=== PATIENT | female | born 1955 | race Caucasian/White ===

== ENCOUNTER 2020-10-16 16:32 | Inpatient (IN) | payer MEDICARE, OTHER ==
[~2020-10-16] VITALS: Ht 157.5 cm; Wt 48.5 kg
[2020-10-16 17:20] VITALS: BP 112/71
[2020-10-16] MEDS ORDERED: ACETAMINOPHEN 325 MG TABLET PO PRN (20:30)
[2020-10-16] MEDS ORDERED: SENNA 187 MG TABLET PO SCH (21:00)
[2020-10-16] MEDS: MELATONIN 3 MG TABLET PO PRN (21:38)
[2020-10-16] MEDS: DOCUSATE SODIUM 100 MG CAPSULE PO SCH (21:38)
[2020-10-17 00:49] VITALS: BP 106/63
[2020-10-17 06:19] LABS: BASOPHILS % (AUTO) 2.6 % (0.0-2.0); EOSINOPHILS % (AUTO) 4.7 % (1.0-6.0); HEMATOCRIT 32.7 % (36-46); HEMOGLOBIN 10.9 g/dL (12.0-16.0); LYMPHOCYTES # (AUTO) 0.7 K/uL (1.0-4.8); LYMPHOCYTES % (AUTO) 29.5 % (22.0-44.0); MEAN CORPUSCULAR HEMOGLOBIN 29.1 pg (26.0-34.0); MEAN CORPUSCULAR HGB CONC 33.4 G/dL (31.0-37.0); MEAN CORPUSCULAR VOLUME 87 fL (80-100); MONOCYTES # (AUTO) 0.4 K/uL (0.1-1.0); MONOCYTES % (AUTO) 15.3 % (2.0-9.0); NEUTROPHILS # (AUTO) 1.1 K/uL (1.8-7.7); NEUTROPHILS % (AUTO) 47.9 % (40.0-70.0); PLATELET COUNT (AUTO) 243 K/uL (150-450); RED BLOOD CELL COUNT(AUTO) 3.75 MIL/uL (4.00-5.20); RED CELL DISTRIBUTION WIDTH 12.7 % (11.5-14.5)
[2020-10-17 06:39] LABS: ALANINE AMINOTRANSFERASE 27 U/L (12-78); ALBUMIN 2.7 g/dL (3.4-5.0); ALKALINE PHOSPHATASE 50 U/L (46-116); ANION GAP 6 mmol/L (8-16); ASPARTATE AMINOTRANSFERASE 29 U/L (15-37); BILIRUBIN,TOTAL 0.3 mg/dL (0.1-1.0); CALCIUM, TOTAL 9.5 mg/dL (8.8-10.5); CARBON DIOXIDE 25 mmol/L (22-29); CHLORIDE 102 mmol/L (98-107); CREATININE 0.67 mg/dL (0.60-1.30); GLOMERULAR FILTR. RATE CALC > 60 mL/min (>60); GLUCOSE,RANDOM 103 mg/dL (70-110); POTASSIUM 3.7 mmol/L (3.5-5.1); SODIUM SERUM 133 mmol/L (136-145); TOTAL PROTEIN, SERUM 8.5 g/dL (6.4-8.2); UREA NITROGEN, BLOOD 19 mg/dL (7-18)
[2020-10-17 07:49] VITALS: BP 110/64
[2020-10-17] MEDS: ENOXAPARIN SODIUM 40 MG/0.4 ML PF SYRINGE SQ SCH (08:00)
[2020-10-17] MEDS: DOCUSATE SODIUM 100 MG CAPSULE PO SCH (08:02)
[2020-10-17] MEDS: OMEGA-3/DHA/EPA/FISH OIL 500 MG CAPSULE PO SCH (12:13)
[2020-10-17] MEDS: MULTIVITAMINS WITH MINERALS, THERAPEUTIC TABLET PO SCH (12:13)
[2020-10-17 15:50] VITALS: BP 115/65
[2020-10-17] MEDS ORDERED: BISACODYL 5 MG EC TABLET PO PRN (20:30)
[2020-10-17] MEDS: DOCUSATE SODIUM 250 MG CAPSULE PO SCH (20:31)
[2020-10-17] MEDS: SENNA 187 MG TABLET PO SCH (20:31)
[2020-10-17 23:01] VITALS: BP 117/64
[2020-10-18 07:30] VITALS: BP 115/67
[2020-10-18] MEDS: MULTIVITAMINS WITH MINERALS, THERAPEUTIC TABLET PO SCH (08:07)
[2020-10-18] MEDS: ENOXAPARIN SODIUM 40 MG/0.4 ML PF SYRINGE SQ SCH (08:07)
[2020-10-18] MEDS: DOCUSATE SODIUM 250 MG CAPSULE PO SCH ×2 (08:07→20:08)
[2020-10-18] MEDS: OMEGA-3/DHA/EPA/FISH OIL 500 MG CAPSULE PO SCH (08:07)
[2020-10-18 16:17] VITALS: BP 105/65
[2020-10-18] MEDS: SENNA 187 MG TABLET PO SCH (20:08)
[2020-10-19] VITALS: BP 115/74
[2020-10-19 06:30] LABS: EOSINOPHILS % (AUTO) 4.7 % (1.0-6.0); HEMATOCRIT 32.4 % (36-46); LYMPHOCYTES # (AUTO) 0.9 K/uL (1.0-4.8); LYMPHOCYTES % (AUTO) 35.1 % (22.0-44.0); MEAN CORPUSCULAR HEMOGLOBIN 29.8 pg (26.0-34.0); MEAN CORPUSCULAR HGB CONC 33.8 G/dL (31.0-37.0); MEAN CORPUSCULAR VOLUME 88 fL (80-100); MONOCYTES # (AUTO) 0.5 K/uL (0.1-1.0); NEUTROPHILS % (AUTO) 37.5 % (40.0-70.0); PLATELET COUNT (AUTO) 238 K/uL (150-450); RED BLOOD CELL COUNT(AUTO) 3.68 MIL/uL (4.00-5.20); RED CELL DISTRIBUTION WIDTH 12.8 % (11.5-14.5)
[2020-10-19 06:43] LABS: ANION GAP 4 mmol/L (8-16); CALCIUM, TOTAL 9.5 mg/dL (8.8-10.5); CARBON DIOXIDE 29 mmol/L (22-29); CHLORIDE 103 mmol/L (98-107); CREATININE 0.67 mg/dL (0.60-1.30); GLOMERULAR FILTR. RATE CALC > 60 mL/min (>60); GLUCOSE,RANDOM 97 mg/dL (70-110); POTASSIUM 3.7 mmol/L (3.5-5.1); SODIUM SERUM 136 mmol/L (136-145); UREA NITROGEN, BLOOD 16 mg/dL (7-18)
[2020-10-19] MEDS: DOCUSATE SODIUM 250 MG CAPSULE PO SCH ×2 (07:47→20:04)
[2020-10-19] MEDS: ENOXAPARIN SODIUM 40 MG/0.4 ML PF SYRINGE SQ SCH (07:47)
[2020-10-19] MEDS: MULTIVITAMINS WITH MINERALS, THERAPEUTIC TABLET PO SCH (07:47)
[2020-10-19] MEDS: OMEGA-3/DHA/EPA/FISH OIL 500 MG CAPSULE PO SCH (07:47)
[2020-10-19 08:34] VITALS: BP 120/54
[2020-10-19 10:40] LABS: MONOCYTES % (AUTO) 20.7 % (2.0-9.0)
[2020-10-19 16:43] VITALS: BP 108/56
[2020-10-19] MEDS: SENNA 187 MG TABLET PO SCH (20:04)
[2020-10-19] MEDS: CALCIUM CARBONATE 500 MG CHEWABLE TABLET CHEW PRN (23:34)
[2020-10-20] VITALS: BP 124/61
[2020-10-20 08:05] VITALS: BP 113/78
[2020-10-20] MEDS: ENOXAPARIN SODIUM 40 MG/0.4 ML PF SYRINGE SQ SCH (08:19)
[2020-10-20] MEDS: MULTIVITAMINS WITH MINERALS, THERAPEUTIC TABLET PO SCH (08:19)
[2020-10-20] MEDS: DOCUSATE SODIUM 250 MG CAPSULE PO SCH ×2 (08:19→20:08)
[2020-10-20] MEDS: CALCIUM CARBONATE 500 MG CHEWABLE TABLET CHEW PRN ×2 (08:19→23:26)
[2020-10-20] MEDS: OMEGA-3/DHA/EPA/FISH OIL 500 MG CAPSULE PO SCH (08:45)
[2020-10-20] MEDS: FAMOTIDINE 20 MG TABLET PO SCH (12:05)
[2020-10-20 16:01] VITALS: BP 101/75
[2020-10-20] MEDS: SENNA 187 MG TABLET PO SCH (20:08)
[2020-10-21 00:21] VITALS: BP 122/68
[2020-10-21] MEDS ORDERED: ONDANSETRON HCL 4 MG TABLET PO PRN (00:30)
[2020-10-21] MEDS: ACETAMINOPHEN 325 MG TABLET PO PRN (00:53)
[2020-10-21] MEDS: FAMOTIDINE 20 MG TABLET PO SCH (05:59)
[2020-10-21 07:22] VITALS: BP 112/64
[2020-10-21] MEDS: OMEGA-3/DHA/EPA/FISH OIL 500 MG CAPSULE PO SCH (08:15)
[2020-10-21] MEDS: ENOXAPARIN SODIUM 40 MG/0.4 ML PF SYRINGE SQ SCH (08:15)
[2020-10-21] MEDS: DOCUSATE SODIUM 250 MG CAPSULE PO SCH ×2 (08:15→20:18)
[2020-10-21] MEDS: MULTIVITAMINS WITH MINERALS, THERAPEUTIC TABLET PO SCH (08:15)
[2020-10-21 15:53] VITALS: BP 106/85
[2020-10-21] MEDS: SENNA 187 MG TABLET PO SCH (20:20)
[2020-10-21 23:08] VITALS: BP 100/55
[2020-10-22] MEDS: FAMOTIDINE 20 MG TABLET PO SCH (06:11)
[2020-10-22 08:20] VITALS: BP 104/54
[2020-10-22] MEDS: ENOXAPARIN SODIUM 40 MG/0.4 ML PF SYRINGE SQ SCH (09:06)
[2020-10-22] MEDS: MULTIVITAMINS WITH MINERALS, THERAPEUTIC TABLET PO SCH (09:07)
[2020-10-22] MEDS: DOCUSATE SODIUM 250 MG CAPSULE PO SCH ×2 (09:07→20:14)
[2020-10-22] MEDS: OMEGA-3/DHA/EPA/FISH OIL 500 MG CAPSULE PO SCH (10:10)
[2020-10-22 16:30] VITALS: BP 110/57
[2020-10-22] MEDS: SENNA 187 MG TABLET PO SCH (20:14)
[2020-10-23 00:01] VITALS: BP 122/71
[2020-10-23] MEDS: FAMOTIDINE 20 MG TABLET PO SCH (05:38)
[2020-10-23 07:19] VITALS: BP 123/69
[2020-10-23] MEDS: ENOXAPARIN SODIUM 40 MG/0.4 ML PF SYRINGE SQ SCH (07:37)
[2020-10-23] MEDS: MULTIVITAMINS WITH MINERALS, THERAPEUTIC TABLET PO SCH (07:38)
[2020-10-23] MEDS: DOCUSATE SODIUM 250 MG CAPSULE PO SCH ×2 (07:38→20:21)
[2020-10-23] MEDS: OMEGA-3/DHA/EPA/FISH OIL 500 MG CAPSULE PO SCH (10:11)
[2020-10-23 16:47] VITALS: BP 101/59
[2020-10-23 20:00] VITALS: BP 118/65
[2020-10-23] MEDS: SENNA 187 MG TABLET PO SCH (20:21)
[2020-10-23] MEDS: MELATONIN 3 MG TABLET PO PRN (20:21)
[2020-10-24 01:34] VITALS: BP 104/45
[2020-10-24] MEDS: FAMOTIDINE 20 MG TABLET PO SCH (05:29)
[2020-10-24 08:01] VITALS: BP 126/70
[2020-10-24] MEDS: ENOXAPARIN SODIUM 40 MG/0.4 ML PF SYRINGE SQ SCH (08:38)
[2020-10-24] MEDS: MULTIVITAMINS WITH MINERALS, THERAPEUTIC TABLET PO SCH (08:38)
[2020-10-24] MEDS: DOCUSATE SODIUM 250 MG CAPSULE PO SCH ×2 (08:38→20:05)
[2020-10-24] MEDS: OMEGA-3/DHA/EPA/FISH OIL 500 MG CAPSULE PO SCH (08:38)
[2020-10-24] MEDS: PredniSONE 20 MG TABLET PO SCH (10:28)
[2020-10-24 16:00] VITALS: BP 108/59
[2020-10-24] MEDS: SENNA 187 MG TABLET PO SCH (20:05)
[2020-10-24] MEDS: PANTOPRAZOLE SODIUM 40 MG DR TABLET PO SCH (20:05)
[2020-10-25 00:02] VITALS: BP 116/83
[2020-10-25 09:10] VITALS: BP 115/65
[2020-10-25] MEDS: PANTOPRAZOLE SODIUM 40 MG DR TABLET PO SCH ×2 (09:31→20:14)
[2020-10-25] MEDS: ENOXAPARIN SODIUM 40 MG/0.4 ML PF SYRINGE SQ SCH (09:31)
[2020-10-25] MEDS: OMEGA-3/DHA/EPA/FISH OIL 500 MG CAPSULE PO SCH (09:31)
[2020-10-25] MEDS: PredniSONE 20 MG TABLET PO SCH (09:31)
[2020-10-25] MEDS: DOCUSATE SODIUM 250 MG CAPSULE PO SCH ×2 (09:31→20:13)
[2020-10-25] MEDS: MULTIVITAMINS WITH MINERALS, THERAPEUTIC TABLET PO SCH (09:31)
[2020-10-25] MEDS ORDERED: DEXTROSE 50%-WATER 25 GM/50 ML SYRINGE IVP PRN (11:45)
[2020-10-25 12:42] LABS: GLUCOMETER DEV NAME(LOC) 2WR.2B; GLUCOSE,POINT OF CARE 125 MG/DL (70-110)
[2020-10-25] MEDS ORDERED: GABAPENTIN 100 MG CAPSULE PO SCH (16:00)
[2020-10-25] MEDS: GABAPENTIN 100 MG CAPSULE PO SCH ×2 (16:03→20:14)
[2020-10-25 16:09] VITALS: BP 104/66
[2020-10-25] MEDS: INSULIN LISPRO 100 UNITS/ML SQ PRN (17:24)
[2020-10-25 18:29] LABS: GLUCOMETER DEV NAME(LOC) 2WR.1C; GLUCOSE,POINT OF CARE 164 MG/DL (70-110)
[2020-10-25] MEDS: SENNA 187 MG TABLET PO SCH (20:13)
[2020-10-26 05:50] VITALS: BP 115/61
[2020-10-26 06:09] LABS: GLUCOMETER DEV NAME(LOC) 2WR.1C; GLUCOSE,POINT OF CARE 94 MG/DL (70-110)
[2020-10-26 06:12] LABS: EOSINOPHILS % (AUTO) 0.6 % (1.0-6.0); HEMOGLOBIN 10.4 g/dL (12.0-16.0); LYMPHOCYTES # (AUTO) 1.6 K/uL (1.0-4.8); LYMPHOCYTES % (AUTO) 35.7 % (22.0-44.0); MEAN CORPUSCULAR HEMOGLOBIN 29.6 pg (26.0-34.0); MEAN CORPUSCULAR HGB CONC 33.5 G/dL (31.0-37.0); MEAN CORPUSCULAR VOLUME 88 fL (80-100); MONOCYTES # (AUTO) 0.5 K/uL (0.1-1.0); MONOCYTES % (AUTO) 11.3 % (2.0-9.0); NEUTROPHILS # (AUTO) 2.3 K/uL (1.8-7.7); NEUTROPHILS % (AUTO) 51.4 % (40.0-70.0); PLATELET COUNT (AUTO) 311 K/uL (150-450); RED BLOOD CELL COUNT(AUTO) 3.51 MIL/uL (4.00-5.20); RED CELL DISTRIBUTION WIDTH 12.8 % (11.5-14.5)
[2020-10-26 06:35] LABS: ALANINE AMINOTRANSFERASE 53 U/L (12-78); ALBUMIN 2.6 g/dL (3.4-5.0); ALKALINE PHOSPHATASE 50 U/L (46-116); ANION GAP 7 mmol/L (8-16); ASPARTATE AMINOTRANSFERASE 32 U/L (15-37); BILIRUBIN,TOTAL 0.2 mg/dL (0.1-1.0); CALCIUM, TOTAL 9.2 mg/dL (8.8-10.5); CARBON DIOXIDE 26 mmol/L (22-29); CHLORIDE 103 mmol/L (98-107); CREATININE 0.65 mg/dL (0.60-1.30); GLOMERULAR FILTR. RATE CALC > 60 mL/min (>60); GLUCOSE,RANDOM 88 mg/dL (70-110); POTASSIUM 3.6 mmol/L (3.5-5.1); SODIUM SERUM 136 mmol/L (136-145); TOTAL PROTEIN, SERUM 7.1 g/dL (6.4-8.2); UREA NITROGEN, BLOOD 22 mg/dL (7-18)
[2020-10-26] MEDS: ENOXAPARIN SODIUM 40 MG/0.4 ML PF SYRINGE SQ SCH (07:26)
[2020-10-26] MEDS: PredniSONE 20 MG TABLET PO SCH (07:26)
[2020-10-26] MEDS: MULTIVITAMINS WITH MINERALS, THERAPEUTIC TABLET PO SCH (07:26)
[2020-10-26] MEDS: PANTOPRAZOLE SODIUM 40 MG DR TABLET PO SCH ×2 (07:26→20:28)
[2020-10-26] MEDS: GABAPENTIN 100 MG CAPSULE PO SCH ×3 (07:26→20:28)
[2020-10-26] MEDS: DOCUSATE SODIUM 250 MG CAPSULE PO SCH ×2 (07:26→20:28)
[2020-10-26] MEDS: OMEGA-3/DHA/EPA/FISH OIL 500 MG CAPSULE PO SCH (07:27)
[2020-10-26 08:26] VITALS: BP 104/57
[2020-10-26 16:16] VITALS: BP 114/63
[2020-10-26 19:10] LABS: GLUCOMETER DEV NAME(LOC) 2WR.1C; GLUCOSE,POINT OF CARE 127 MG/DL (70-110)
[2020-10-26] MEDS: SENNA 187 MG TABLET PO SCH (20:28)
[2020-10-27] VITALS: BP 121/60
[2020-10-27 06:19] LABS: GLUCOMETER DEV NAME(LOC) 2WR.1C; GLUCOSE,POINT OF CARE 99 MG/DL (70-110)
[2020-10-27 07:18] VITALS: BP 114/57
[2020-10-27] MEDS: PANTOPRAZOLE SODIUM 40 MG DR TABLET PO SCH ×2 (07:58→19:50)
[2020-10-27] MEDS: ENOXAPARIN SODIUM 40 MG/0.4 ML PF SYRINGE SQ SCH (07:58)
[2020-10-27] MEDS: DOCUSATE SODIUM 250 MG CAPSULE PO SCH ×2 (07:58→19:40)
[2020-10-27] MEDS: OMEGA-3/DHA/EPA/FISH OIL 500 MG CAPSULE PO SCH (07:58)
[2020-10-27] MEDS: GABAPENTIN 100 MG CAPSULE PO SCH ×3 (07:58→19:50)
[2020-10-27] MEDS: PredniSONE 20 MG TABLET PO SCH (07:58)
[2020-10-27] MEDS: MULTIVITAMINS WITH MINERALS, THERAPEUTIC TABLET PO SCH (07:58)
[2020-10-27 16:00] VITALS: BP 116/65
[2020-10-27] MEDS: INSULIN LISPRO 100 UNITS/ML SQ PRN (17:24)
[2020-10-27 17:37] LABS: GLUCOMETER DEV NAME(LOC) 2WR.1C; GLUCOSE,POINT OF CARE 144 MG/DL (70-110)
[2020-10-27] MEDS: SENNA 187 MG TABLET PO SCH (19:40)
[2020-10-28] VITALS: BP 129/72
[2020-10-28 06:03] LABS: GLUCOMETER DEV NAME(LOC) 2WR.2B; GLUCOSE,POINT OF CARE 86 MG/DL (70-110)
[2020-10-28] MEDS: MULTIVITAMINS WITH MINERALS, THERAPEUTIC TABLET PO SCH (08:15)
[2020-10-28] MEDS: PANTOPRAZOLE SODIUM 40 MG DR TABLET PO SCH ×2 (08:15→20:06)
[2020-10-28] MEDS: ENOXAPARIN SODIUM 40 MG/0.4 ML PF SYRINGE SQ SCH (08:15)
[2020-10-28] MEDS: PredniSONE 20 MG TABLET PO SCH (08:15)
[2020-10-28] MEDS: GABAPENTIN 100 MG CAPSULE PO SCH ×3 (08:15→20:07)
[2020-10-28] MEDS: OMEGA-3/DHA/EPA/FISH OIL 500 MG CAPSULE PO SCH (08:15)
[2020-10-28] MEDS: DOCUSATE SODIUM 250 MG CAPSULE PO SCH ×2 (08:15→20:07)
[2020-10-28 09:36] VITALS: BP 117/65
[2020-10-28 11:59] LABS: GLUCOMETER DEV NAME(LOC) 2WR.2B; GLUCOSE,POINT OF CARE 134 MG/DL (70-110)
[2020-10-28 16:23] VITALS: BP 113/72
[2020-10-28 18:17] LABS: GLUCOMETER DEV NAME(LOC) 2WR.2B; GLUCOSE,POINT OF CARE 127 MG/DL (70-110)
[2020-10-28] MEDS: SENNA 187 MG TABLET PO SCH (20:06)
[2020-10-29] VITALS: BP 144/66
[2020-10-29 05:43] LABS: GLUCOMETER DEV NAME(LOC) 2WR.2B; GLUCOSE,POINT OF CARE 96 MG/DL (70-110)
[2020-10-29 07:45] VITALS: BP 104/58
[2020-10-29] MEDS: ENOXAPARIN SODIUM 40 MG/0.4 ML PF SYRINGE SQ SCH (09:55)
[2020-10-29] MEDS: OMEGA-3/DHA/EPA/FISH OIL 500 MG CAPSULE PO SCH (09:55)
[2020-10-29] MEDS: DOCUSATE SODIUM 250 MG CAPSULE PO SCH ×2 (09:56→20:04)
[2020-10-29] MEDS: MULTIVITAMINS WITH MINERALS, THERAPEUTIC TABLET PO SCH (09:56)
[2020-10-29] MEDS: PANTOPRAZOLE SODIUM 40 MG DR TABLET PO SCH ×2 (09:56→20:04)
[2020-10-29] MEDS: PredniSONE 20 MG TABLET PO SCH (09:56)
[2020-10-29] MEDS: GABAPENTIN 100 MG CAPSULE PO SCH ×3 (09:56→20:04)
[2020-10-29 16:13] VITALS: BP 113/64
[2020-10-29 17:54] LABS: GLUCOMETER DEV NAME(LOC) 2WR.2B; GLUCOSE,POINT OF CARE 128 MG/DL (70-110)
[2020-10-29] MEDS: SENNA 187 MG TABLET PO SCH (20:04)
[2020-10-29] MEDS ORDERED: MULT-413 PO (20:13)
[2020-10-29] MEDS ORDERED: PANT-31 PO (20:13)
[2020-10-29] MEDS ORDERED: DOCU-350 PO (20:13)
[2020-10-29] MEDS ORDERED: OMEG-50 PO (20:13)
[2020-10-29] MEDS ORDERED: GABA-1216 PO (20:13)
[2020-10-29] MEDS ORDERED: PRED20 PO (20:13)
[2020-10-30] VITALS: BP 115/66
[2020-10-30 05:46] LABS: GLUCOMETER DEV NAME(LOC) 2WR.2B; GLUCOSE,POINT OF CARE 92 MG/DL (70-110)
[2020-10-30] MEDS: DOCUSATE SODIUM 250 MG CAPSULE PO SCH ×2 (08:04→20:15)
[2020-10-30] MEDS: MULTIVITAMINS WITH MINERALS, THERAPEUTIC TABLET PO SCH (08:04)
[2020-10-30] MEDS: PANTOPRAZOLE SODIUM 40 MG DR TABLET PO SCH ×2 (08:04→20:16)
[2020-10-30] MEDS: ENOXAPARIN SODIUM 40 MG/0.4 ML PF SYRINGE SQ SCH (08:04)
[2020-10-30] MEDS: GABAPENTIN 100 MG CAPSULE PO SCH ×3 (08:04→20:16)
[2020-10-30] MEDS: PredniSONE 20 MG TABLET PO SCH (08:04)
[2020-10-30] MEDS: OMEGA-3/DHA/EPA/FISH OIL 500 MG CAPSULE PO SCH (08:04)
[2020-10-30 08:08] VITALS: BP 107/60
[2020-10-30] MEDS: ACETAMINOPHEN 325 MG TABLET PO PRN (09:28)
[2020-10-30 16:10] VITALS: BP 106/60
[2020-10-30 17:54] LABS: GLUCOMETER DEV NAME(LOC) 2WR.2B; GLUCOSE,POINT OF CARE 130 MG/DL (70-110)
[2020-10-30] MEDS: SENNA 187 MG TABLET PO SCH (20:17)
[2020-10-31 05:18] VITALS: BP 111/57
[2020-10-31 05:56] LABS: GLUCOMETER DEV NAME(LOC) 2WR.2B; GLUCOSE,POINT OF CARE 89 MG/DL (70-110)
[2020-10-31 07:21] VITALS: BP 93/58
[2020-10-31] MEDS: PredniSONE 20 MG TABLET PO SCH (07:54)
[2020-10-31] MEDS: PANTOPRAZOLE SODIUM 40 MG DR TABLET PO SCH ×2 (07:54→20:04)
[2020-10-31] MEDS: ENOXAPARIN SODIUM 40 MG/0.4 ML PF SYRINGE SQ SCH (07:54)
[2020-10-31] MEDS: MULTIVITAMINS WITH MINERALS, THERAPEUTIC TABLET PO SCH (07:54)
[2020-10-31] MEDS: DOCUSATE SODIUM 250 MG CAPSULE PO SCH ×2 (07:54→20:03)
[2020-10-31] MEDS: OMEGA-3/DHA/EPA/FISH OIL 500 MG CAPSULE PO SCH (07:54)
[2020-10-31] MEDS: GABAPENTIN 100 MG CAPSULE PO SCH ×3 (07:54→20:03)
[2020-10-31 15:02] VITALS: BP 112/54
[2020-10-31 19:41] LABS: GLUCOMETER DEV NAME(LOC) 2WR.2B; GLUCOSE,POINT OF CARE 110 MG/DL (70-110)
[2020-10-31] MEDS: SENNA 187 MG TABLET PO SCH (20:03)
[2020-11-01 01:04] VITALS: BP 112/62
[2020-11-01 06:46] LABS: GLUCOMETER DEV NAME(LOC) 2WR.2B; GLUCOSE,POINT OF CARE 94 MG/DL (70-110)
[2020-11-01 07:07] VITALS: BP 100/54
[2020-11-01] MEDS: MULTIVITAMINS WITH MINERALS, THERAPEUTIC TABLET PO SCH (08:05)
[2020-11-01] MEDS: PredniSONE 20 MG TABLET PO SCH (08:05)
[2020-11-01] MEDS: ENOXAPARIN SODIUM 40 MG/0.4 ML PF SYRINGE SQ SCH (08:05)
[2020-11-01] MEDS: GABAPENTIN 100 MG CAPSULE PO SCH ×3 (08:05→20:06)
[2020-11-01] MEDS: DOCUSATE SODIUM 250 MG CAPSULE PO SCH ×2 (08:05→20:06)
[2020-11-01] MEDS: PANTOPRAZOLE SODIUM 40 MG DR TABLET PO SCH ×2 (08:05→20:06)
[2020-11-01] MEDS: OMEGA-3/DHA/EPA/FISH OIL 500 MG CAPSULE PO SCH (08:05)
[2020-11-01] MEDS ORDERED: TiZANidine HCL 4 MG TABLET PO SCH (09:45)
[2020-11-01 16:11] VITALS: BP 105/58
[2020-11-01] MEDS: SENNA 187 MG TABLET PO SCH (20:06)
[2020-11-02] VITALS: BP 131/77
[2020-11-02 07:22] VITALS: BP 97/54
[2020-11-02] MEDS: DOCUSATE SODIUM 250 MG CAPSULE PO SCH ×2 (09:17→20:32)
[2020-11-02] MEDS: GABAPENTIN 100 MG CAPSULE PO SCH ×3 (09:17→20:31)
[2020-11-02] MEDS: MULTIVITAMINS WITH MINERALS, THERAPEUTIC TABLET PO SCH (09:17)
[2020-11-02] MEDS: PANTOPRAZOLE SODIUM 40 MG DR TABLET PO SCH ×2 (09:18→20:31)
[2020-11-02] MEDS: PredniSONE 20 MG TABLET PO SCH (09:18)
[2020-11-02] MEDS: ENOXAPARIN SODIUM 40 MG/0.4 ML PF SYRINGE SQ SCH (09:18)
[2020-11-02] MEDS: OMEGA-3/DHA/EPA/FISH OIL 500 MG CAPSULE PO SCH (09:18)
[2020-11-02 10:00] LABS: COVID AG,FIA SOURCE NASOPHARYNGEAL
[2020-11-02 16:44] VITALS: BP 100/58
[2020-11-02] MEDS: SENNA 187 MG TABLET PO SCH (20:32)
[2020-11-03] VITALS: BP 107/62
[2020-11-03 08:15] VITALS: BP 106/55
[2020-11-03] MEDS: ENOXAPARIN SODIUM 40 MG/0.4 ML PF SYRINGE SQ SCH (08:38)
[2020-11-03] MEDS: PredniSONE 20 MG TABLET PO SCH (08:39)
[2020-11-03] MEDS: PANTOPRAZOLE SODIUM 40 MG DR TABLET PO SCH ×2 (08:39→20:36)
[2020-11-03] MEDS: MULTIVITAMINS WITH MINERALS, THERAPEUTIC TABLET PO SCH (08:39)
[2020-11-03] MEDS: OMEGA-3/DHA/EPA/FISH OIL 500 MG CAPSULE PO SCH (08:39)
[2020-11-03] MEDS: GABAPENTIN 100 MG CAPSULE PO SCH ×3 (08:39→20:36)
[2020-11-03] MEDS: DOCUSATE SODIUM 250 MG CAPSULE PO SCH ×2 (08:39→20:36)
[2020-11-03 16:05] VITALS: BP 104/54
[2020-11-03] MEDS: SENNA 187 MG TABLET PO SCH (20:36)
[2020-11-04 00:10] VITALS: BP 110/61
[2020-11-04] MEDS: MULTIVITAMINS WITH MINERALS, THERAPEUTIC TABLET PO SCH (08:54)
[2020-11-04] MEDS: PredniSONE 20 MG TABLET PO SCH (08:54)
[2020-11-04] MEDS: DOCUSATE SODIUM 250 MG CAPSULE PO SCH ×2 (08:54→20:17)
[2020-11-04] MEDS: ENOXAPARIN SODIUM 40 MG/0.4 ML PF SYRINGE SQ SCH (08:54)
[2020-11-04] MEDS: PANTOPRAZOLE SODIUM 40 MG DR TABLET PO SCH ×2 (08:55→20:16)
[2020-11-04] MEDS: GABAPENTIN 100 MG CAPSULE PO SCH ×3 (08:55→20:17)
[2020-11-04] MEDS: OMEGA-3/DHA/EPA/FISH OIL 500 MG CAPSULE PO SCH (08:55)
[2020-11-04 09:26] VITALS: BP 103/58
[2020-11-04 15:29] VITALS: BP 99/54
[2020-11-04] MEDS: SENNA 187 MG TABLET PO SCH (20:18)
[2020-11-05] VITALS: BP 105/67
[2020-11-05 08:06] VITALS: BP 117/69
[2020-11-05] MEDS: PredniSONE 20 MG TABLET PO SCH (09:31)
[2020-11-05] MEDS: OMEGA-3/DHA/EPA/FISH OIL 500 MG CAPSULE PO SCH (09:31)
[2020-11-05] MEDS: ENOXAPARIN SODIUM 40 MG/0.4 ML PF SYRINGE SQ SCH (09:31)
[2020-11-05] MEDS: MULTIVITAMINS WITH MINERALS, THERAPEUTIC TABLET PO SCH (09:31)
[2020-11-05] MEDS: GABAPENTIN 100 MG CAPSULE PO SCH ×3 (09:31→20:25)
[2020-11-05] MEDS: DOCUSATE SODIUM 250 MG CAPSULE PO SCH ×2 (09:31→20:25)
[2020-11-05] MEDS: PANTOPRAZOLE SODIUM 40 MG DR TABLET PO SCH ×2 (09:31→20:25)
[2020-11-05 16:17] VITALS: BP 101/58
[2020-11-05] MEDS: SENNA 187 MG TABLET PO SCH (20:25)
[2020-11-06 00:02] VITALS: BP 100/58
[2020-11-06] MEDS: PANTOPRAZOLE SODIUM 40 MG DR TABLET PO SCH ×2 (07:50→20:17)
[2020-11-06] MEDS: ENOXAPARIN SODIUM 40 MG/0.4 ML PF SYRINGE SQ SCH (07:50)
[2020-11-06] MEDS: OMEGA-3/DHA/EPA/FISH OIL 500 MG CAPSULE PO SCH (07:50)
[2020-11-06] MEDS: MULTIVITAMINS WITH MINERALS, THERAPEUTIC TABLET PO SCH (07:50)
[2020-11-06] MEDS: PredniSONE 20 MG TABLET PO SCH (07:50)
[2020-11-06] MEDS: DOCUSATE SODIUM 250 MG CAPSULE PO SCH ×2 (07:50→20:17)
[2020-11-06] MEDS: GABAPENTIN 100 MG CAPSULE PO SCH ×3 (07:50→20:17)
[2020-11-06 08:35] VITALS: BP 99/62
[2020-11-06 16:12] VITALS: BP 103/62
[2020-11-06] MEDS: SENNA 187 MG TABLET PO SCH (20:16)
[2020-11-07] VITALS: BP 100/58
[2020-11-07] MEDS: ENOXAPARIN SODIUM 40 MG/0.4 ML PF SYRINGE SQ SCH (07:30)
[2020-11-07] MEDS: DOCUSATE SODIUM 250 MG CAPSULE PO SCH ×2 (07:31→20:00)
[2020-11-07] MEDS: MULTIVITAMINS WITH MINERALS, THERAPEUTIC TABLET PO SCH (07:31)
[2020-11-07] MEDS: GABAPENTIN 100 MG CAPSULE PO SCH ×3 (07:31→20:00)
[2020-11-07] MEDS: PredniSONE 20 MG TABLET PO SCH (07:31)
[2020-11-07] MEDS: OMEGA-3/DHA/EPA/FISH OIL 500 MG CAPSULE PO SCH (07:31)
[2020-11-07] MEDS: PANTOPRAZOLE SODIUM 40 MG DR TABLET PO SCH ×2 (07:31→20:00)
[2020-11-07 08:32] VITALS: BP 92/46
[2020-11-07 16:02] VITALS: BP 105/58
[2020-11-07] MEDS: SENNA 187 MG TABLET PO SCH (20:00)
[2020-11-08] VITALS: BP 109/56
[2020-11-08 07:43] VITALS: BP 88/53
[2020-11-08] MEDS: GABAPENTIN 100 MG CAPSULE PO SCH ×3 (08:52→20:02)
[2020-11-08] MEDS: DOCUSATE SODIUM 250 MG CAPSULE PO SCH ×2 (08:52→20:02)
[2020-11-08] MEDS: PANTOPRAZOLE SODIUM 40 MG DR TABLET PO SCH ×2 (08:52→20:02)
[2020-11-08] MEDS: OMEGA-3/DHA/EPA/FISH OIL 500 MG CAPSULE PO SCH (08:52)
[2020-11-08] MEDS: ENOXAPARIN SODIUM 40 MG/0.4 ML PF SYRINGE SQ SCH (08:52)
[2020-11-08] MEDS: MULTIVITAMINS WITH MINERALS, THERAPEUTIC TABLET PO SCH (08:53)
[2020-11-08] MEDS: PredniSONE 20 MG TABLET PO SCH (08:53)
[2020-11-08 09:43] VITALS: BP 100/59
[2020-11-08 10:42] LABS: BASOPHILS % (AUTO) 1.1 % (0.0-2.0); EOSINOPHILS % (AUTO) 1.7 % (1.0-6.0); HEMATOCRIT 35.1 % (36-46); HEMOGLOBIN 11.7 g/dL (12.0-16.0); LYMPHOCYTES # (AUTO) 1.4 K/uL (1.0-4.8); LYMPHOCYTES % (AUTO) 18.7 % (22.0-44.0); MEAN CORPUSCULAR HEMOGLOBIN 29.6 pg (26.0-34.0); MEAN CORPUSCULAR HGB CONC 33.2 G/dL (31.0-37.0); MEAN CORPUSCULAR VOLUME 89 fL (80-100); MONOCYTES # (AUTO) 0.5 K/uL (0.1-1.0); MONOCYTES % (AUTO) 6.8 % (2.0-9.0); NEUTROPHILS # (AUTO) 5.2 K/uL (1.8-7.7); NEUTROPHILS % (AUTO) 71.7 % (40.0-70.0); PLATELET COUNT (AUTO) 301 K/uL (150-450); RED BLOOD CELL COUNT(AUTO) 3.95 MIL/uL (4.00-5.20); RED CELL DISTRIBUTION WIDTH 13.4 % (11.5-14.5)
[2020-11-08 11:04] LABS: ANION GAP 8 mmol/L (8-16); CALCIUM, TOTAL 8.9 mg/dL (8.8-10.5); CARBON DIOXIDE 26 mmol/L (22-29); CHLORIDE 102 mmol/L (98-107); CREATININE 0.57 mg/dL (0.60-1.30); GLOMERULAR FILTR. RATE CALC > 60 mL/min (>60); GLUCOSE,RANDOM 125 mg/dL (70-110); POTASSIUM 3.8 mmol/L (3.5-5.1); SODIUM SERUM 136 mmol/L (136-145); UREA NITROGEN, BLOOD 21 mg/dL (7-18)
[2020-11-08 15:36] VITALS: BP 105/60
[2020-11-08 19:40] VITALS: BP 113/66
[2020-11-08] MEDS: SENNA 187 MG TABLET PO SCH (20:02)
[2020-11-08] MEDS ORDERED: PRED10 PO (23:09)
[2020-11-08] MEDS ORDERED: SENN8.6T90 PO (23:09)
[2020-11-09 00:29] VITALS: BP 113/65
[2020-11-09 07:19] VITALS: BP 100/53
[2020-11-09] MEDS: ENOXAPARIN SODIUM 40 MG/0.4 ML PF SYRINGE SQ SCH (08:30)
[2020-11-09] MEDS: DOCUSATE SODIUM 250 MG CAPSULE PO SCH (08:30)
[2020-11-09] MEDS: MULTIVITAMINS WITH MINERALS, THERAPEUTIC TABLET PO SCH (08:30)
[2020-11-09] MEDS: PANTOPRAZOLE SODIUM 40 MG DR TABLET PO SCH (08:31)
[2020-11-09] MEDS: GABAPENTIN 100 MG CAPSULE PO SCH (08:31)
[2020-11-09] MEDS: OMEGA-3/DHA/EPA/FISH OIL 500 MG CAPSULE PO SCH (08:31)
[2020-11-09] MEDS: PredniSONE 20 MG TABLET PO SCH (08:31)
== END 2020-11-09 12:20 | disposition home or self-care (01) | DRG 73 ==
LOC: 2WR 17:05
PROVIDERS: ADMIT Physical Medicine & Rehabilitation; ATTEND Physical Medicine & Rehabilitation
DX: G61.81 Chronic inflammatory demyelinating polyneuritis (principal); G82.50 Quadriplegia, unspecified; D61.818 Other pancytopenia; E87.1 Hypo-osmolality and hyponatremia; E46 Unspecified protein-calorie malnutrition
CPT/HCPCS: 73721; 80048; 80053; 82962; 85025; 87081; 93970; 97110; 97112; 97116; 97163; 97166; 97530; 97535; 99366; J1650; Q0162